=== PATIENT | male | born 1985 | race Caucasian/White ===

== ENCOUNTER 2016-10-24 20:52 | Inpatient (IN) | payer OTHER ==
[2016-10-24 21:53] VITALS: BMI 25.0
[2016-10-24] MEDS ORDERED: guaiFENesin/D-METHORPHAN HB 10 ML UNIT-DOSE CUPS PO PRN (22:32)
[2016-10-24] MEDS ORDERED: P-EPHED 60MG/TRIPROLIDI 2.5MG TABLET PO PRN (22:32)
[2016-10-24] MEDS ORDERED: MAGNESIUM HYDROX 2400MG/30ML ORAL SUSPENSION 30 ML CUP PO PRN (22:32)
[2016-10-24] MEDS ORDERED: ACETAMINOPHEN 325 MG TABLET (FP) PO PRN (22:32)
[2016-10-24] MEDS ORDERED: diphenhydrAMINE HCL 50 MG CAPSULE PO PRN (22:32)
[2016-10-24] MEDS ORDERED: LOPERAMIDE HCL 2 MG CAPSULE PO PRN (22:32)
[2016-10-24] MEDS ORDERED: MAG HYDROX/AL HYDROX/SIMETH 30 ML UNIT-DOSE CUP PO PRN (22:32)
[2016-10-24] MEDS ORDERED: MAGNESIUM CITRATE 300 ML BOTTLE PO PRN (22:32)
[2016-10-24] MEDS ORDERED: MENTHOL/PHENOL 1 EACH UD MM PRN (22:32)
[2016-10-24] MEDS ORDERED: METHADONE HCL 10 MG TABLET (FOR DETOX USE ONLY) PO ONE ×2 (22:32→23:00)
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
[2016-10-24] MEDS: CYCLOBENZAPRINE HCL 10 MG TABLET (FP) PO PRN (23:31)
[2016-10-24] MEDS: diazePAM 5 MG TABLET PO PRN (23:31)
[2016-10-25 00:55] LABS: URINE APPEARANCE CLOUDY; URINE BILIRUBIN NEGATIVE (NEGATIVE); URINE BLOOD NEGATIVE (NEGATIVE); URINE COLOR YELLOW; URINE GLUCOSE (UA) NEGATIVE (NEGATIVE); URINE KETONE NEGATIVE (NEGATIVE); URINE NITRITE NEGATIVE (NEGATIVE); URINE PROTEIN NEGATIVE (NEGATIVE); URINE UROBILINOGEN NEGATIVE E.U./dl (0.2-1.0)
[2016-10-25 01:04] LABS: URINE LEUK ESTERASE TRACE (NEGATIVE)
[2016-10-25 01:06] LABS: URINE BACTERIA FEW /hpf (NONE SEEN); URINE MUCUS RARE; URINE RBC <1 /hpf (0-3); URINE WBC 7 /hpf (3-5)
[2016-10-25] MEDS: diazePAM 5 MG TABLET PO PRN ×5 (04:46→22:42)
[2016-10-25] MEDS ORDERED: METHADONE HCL 10 MG TABLET (FOR DETOX USE ONLY) PO ONE (10:00)
[2016-10-25] MEDS: PRENATAL VITAMINS W/ FOLIC ACID TABLET (FP) PO SCH (10:03)
[2016-10-25] MEDS: RANITIDINE HCL 150 MG TABLET (FP) PO SCH ×2 (10:03→22:42)
[2016-10-25] MEDS: NICOTINE 21 MG/24 HOURS TOPICAL PATCH TD SCH (10:04)
[2016-10-25 10:08] LABS: MCH 27.2 pg (25.7-33.7); MCHC 33.8 g/dl (32.0-35.9); MEAN CELL VOLUME 80.4 fl (80-96); MEAN PLT VOLUME 7.9 fl (7.5-11.1); PLATELET COUNT 240 K/MM3 (134-434); RDW 15.5 % (11.9-15.9)
[2016-10-25 10:18] LABS: SGOT/AST 12 U/L (15-37)
[2016-10-25 10:35] LABS: ALBUMIN 3.4 g/dl (3.4-5.0); ALK PHOS 70 U/L (45-117); ANION GAP 7 (8-16); BILIRUBIN,TOTAL 0.3 mg/dL (0.2-1.0); CALCIUM 8.7 mg/dL (8.5-10.1); CO2 29 mmol/L (21-32); CREATININE 1.1 mg/dL (0.7-1.3); GLUCOSE,RANDOM 98 mg/dL (74-106); SGPT/ALT 21 U/L (12-78); TOT PROT 6.7 g/dl (6.4-8.2)
[2016-10-25 11:54] LABS: HIV 1 & 2 AB NEGATIVE; HIV 1 AGp24 NEGATIVE
[2016-10-25] MEDS: NICOTINE POLACRILEX 2 MG GUM BUC PRN ×2 (12:47→17:44)
[2016-10-25] MEDS ORDERED: COLLOIDAL OATMEAL 1 BAR EACH TP PRN (13:00)
--- NOTE | 2016-10-25 13:04 | PN ---
BHS COWS - Scale Resting Pulse: 0= [place] 80 or Below Sweatin= Chills/Flushing Restless Observation: 1= Difficult to Sit Still Pupil Size: 1= Pupils >than Normal Bone or Joint Aches: 1= Mild Discomfort Runny Nose/ Eye Tearin= Nasal Congestion GI Upset > 30mins: 1= Stomach Cramp Tremor Observation of Outstretched Hands: 1= Tremor [place], Not Seen Yawning Observation: 0= None Anxiety or Irritability: 2=Irritable/Anxious Goose Flesh Skin: 0=Smooth Skin COWS Score: 9 BHS Progress Note (SOAP) Subjective: sweats, , interryupted sleep Objective: 10/25/16 13:03 Vital Signs Temperature 98.1 F 10/25/16 09:34 Pulse Rate 58 L 10/25/16 09:34 Respiratory Rate 18 10/25/16 09:34 Blood Pressure 120/68 10/25/16 09:34 O2 Sat by Pulse Oximetry (%) Laboratory Tests 10/24/16 10/25/16 10/25/16 23:39 07:00 07:00 WBC 6.0 RBC 4.61 Hgb 12.5 Hct 37.1 MCV 80.4 MCHC 33.8 RDW 15.5 Plt Count 240 MPV 7.9 Sodium Potassium Chloride Carbon Dioxide Anion Gap BUN Creatinine Creat Clearance w eGFR Random Glucose Calcium Total Bilirubin AST ALT Alkaline Phosphatase Total Protein Albumin Urine Color Yellow Urine Appearance Cloudy Urine pH 7.0 D Ur Specific [place] 1.025 Urine Protein Negative Urine Glucose (UA) Negative Urine Ketones Negative Urine Blood Negative Urine Nitrite Negative Urine Bilirubin Negative Urine Urobilinogen Negative Ur Leukocyte Esterase Trace H Urine RBC <1 Urine WBC 7 Ur Epithelial Cells Rare Urine Bacteria Few Urine Mucus Rare RPR Titer HIV 1&2 Antibody Screen Negative HIV P24 Antigen Negative 10/25/16 10/25/16 07:00 07:00 WBC RBC Hgb Hct MCV MCHC RDW Plt Count MPV Sodium 140 Potassium 4.2 Chloride 104 Carbon Dioxide 29 Anion Gap 7 L BUN 15 D Creatinine 1.1 Creat Clearance w eGFR > 60 Random Glucose 98 Calcium 8.7 Total Bilirubin 0.3 AST 12 L D ALT 21 Alkaline Phosphatase 70 Total Protein 6.7 Albumin 3.4 Urine Color Urine Appearance Urine pH Ur Specific [place] Urine Protein Urine Glucose (UA) Urine Ketones Urine Blood Urine Nitrite Urine Bilirubin Urine Urobilinogen Ur Leukocyte Esterase Urine RBC Urine WBC Ur Epithelial Cells Urine Bacteria Urine Mucus RPR Titer Nonreactive HIV 1&2 Antibody Screen HIV P24 Antigen pt aox3 in nad ambulating Assessment: 10/25/16 13:03 withdrawl sx's Plan: cont. detox increase fluids aveeno soap
--- NOTE | 2016-10-25 16:15 | EKG ---
Test Reason : Blood Pressure : / mmHG Vent. Rate : 051 BPM Atrial Rate : 051 BPM P-R Int : 136 ms QRS Dur : 104 ms QT Int : 434 ms P-R-T Axes : 067 027 025 degrees QTc Int : 400 ms SINUS BRADYCARDIA OTHERWISE NORMAL ECG WHEN COMPARED WITH ECG OF 02-MAY-2012 06:15, NO SIGNIFICANT CHANGE WAS FOUND Confirmed by AYUSH CHRISTOPHER MD ([id number]) on 10/25/2016 4:14:59 PM Referred By: Confirmed By:AYUSH CHRISTOPHER MD
--- NOTE | 2016-10-25 16:50 | CONSULT ---
[facility] Psychiatric Consult - Data Date of interview: 10/25/16 Admission source: [facility] Identifying data: This is 31 yeqars old male with psychiatric hospitalization history intoxicated with: Opioids, Cocaine and Nicotine Substance Abuse History: - Smoking Cessation. Smoking history: Current every day smoker. Have you smoked in the past 12 months: Yes. Aproximately how many cigarettes per day: 20. Cigars Per Day: 0. Hx Chewing Tobacco Use: No. Initiated information on smoking cessation: Yes. 'Breaking Loose' booklet given : 10/24/16. - Substance & Tx. History. Hx Alcohol Use: No. Hx Substance Use: Yes. Substance Use Type: Cocaine, Opiates. Hx Substance Use Treatment: Yes. - Substances Abused. Cocaine. Route: Injection. Frequency: 1-2 times per week. Amount used: 1/2 gram. Age of first use: 15. Date of Last Use: . Heroin. Route: Injection. Frequency: Daily. Amount used: 5-10 bags. Age of first use: 27. Date of Last Use: 10/24/16 Medical History: LBP, GERD Psychiatric History: pATIENT REPORTS HISTORY OF DEPRESSION AND ANXIETYWITH MOST RECENT PSYCHIATRIC ADMISSION ON 2915 AT [facility] DUE TO ANXIETY AND DEPRESSION, REPORTS NO MEDICATIONS TAKING PRIOR TO ADMISSION Physical/Sexual Abuse/Trauma History: Denies Additional Comment: Observation Mental Status Exam - Mental Status Exam Alert and Oriented to: Person Cognitive Function: Fair Patient Appearance: Unkempt Mood: Sad Affect: Flat Patient Behavior: Cooperative Speech Pattern: Appropriate Voice Loudness: Mildly Loud Thought Process: Circumstantial Thought Disorder: Being Controlled Hallucinations: Denies Suicidal Ideation: Denies Homicidal Ideation: Denies Insight/Judgement: Fair Sleep: Difficulty falling asleep Appetite: Weight loss Muscle strength/Tone: Normal Gait/Station: Normal Additional Comments: Observation Psychiatric Findings - Problem List ([place] 1, 2,3) (1) Nicotine dependence Current Visit: Yes Status: Acute Qualifiers: Nicotine product type: cigarettes Substance use status: in withdrawal Qualified Code(s): F17.213 - Nicotine dependence, cigarettes, with withdrawal (2) Opioid dependence with withdrawal Current Visit: Yes Status: Acute (3) Anxiety and depression Current Visit: Yes Status: Suspected (4) Cocaine dependence, uncomplicated Current Visit: No Status: Acute (5) Substance induced mood disorder Current Visit: No Status: Acute - Initial Treatment Plan Initial Treatment Plan: Observation
[2016-10-25] MEDS: CYCLOBENZAPRINE HCL 10 MG TABLET (FP) PO PRN (17:44)
[2016-10-25] MEDS: THIAMINE HCL 100 MG TABLET (FP) PO SCH (22:42)
[2016-10-26] MEDS: diazePAM 5 MG TABLET PO PRN ×4 (03:55→22:23)
[2016-10-26] MEDS ORDERED: METHADONE HCL 5 MG TABLET (FOR DETOX USE ONLY) PO ONE (10:00)
[2016-10-26] MEDS: NICOTINE 21 MG/24 HOURS TOPICAL PATCH TD SCH (10:35)
[2016-10-26] MEDS: RANITIDINE HCL 150 MG TABLET (FP) PO SCH ×2 (10:35→22:23)
[2016-10-26] MEDS: PRENATAL VITAMINS W/ FOLIC ACID TABLET (FP) PO SCH (10:35)
[2016-10-26] MEDS: CYCLOBENZAPRINE HCL 10 MG TABLET (FP) PO PRN (10:35)
[2016-10-26] MEDS: NICOTINE POLACRILEX 2 MG GUM BUC PRN ×2 (10:39→14:41)
--- NOTE | 2016-10-26 10:57 | PN ---
BHS COWS - Scale Resting Pulse: 0= [place] 80 or Below Sweatin= Chills/Flushing Restless Observation: 3= Extraneous Movement Pupil Size: 1= Pupils >than Normal Bone or Joint Aches: 1= Mild Discomfort Runny Nose/ Eye Tearin= Nasal Congestion GI Upset > 30mins: 1= Stomach Cramp Tremor Observation of Outstretched Hands: 2= Slight Tremor Visible Yawning Observation: 0= None Anxiety or Irritability: 2=Irritable/Anxious Goose Flesh Skin: 0=Smooth Skin COWS Score: 12 S Progress Note (SOAP) Objective: 10/26/16 10:56 Vital Signs - 24 hr 10/25/16 10/25/16 10/25/16 13:57 18:24 21:58 Temperature 97.5 F L 97.7 F 97.9 F Pulse Rate 52 L 66 56 L Respiratory 18 16 16 Rate Blood Pressure 128/57 124/65 123/76 10/26/16 10/26/16 10/26/16 00:30 06:00 10:21 Temperature 97.5 F L 98 F Pulse Rate 72 57 L Respiratory 18 18 18 Rate Blood Pressure 107/59 133/73 Vital Signs - 24 hr 10/25/16 10/25/16 10/25/16 13:57 18:24 21:58 Temperature 97.5 F L 97.7 F 97.9 F Pulse Rate 52 L 66 56 L Respiratory 18 16 16 Rate Blood Pressure 128/57 124/65 123/76 10/26/16 10/26/16 10/26/16 00:30 06:00 10:21 Temperature 97.5 F L 98 F Pulse Rate 72 57 L Respiratory 18 18 18 Rate Blood Pressure 107/59 133/73 Laboratory Tests 10/24/16 10/25/16 10/25/16 23:39 07:00 07:00 WBC 6.0 RBC 4.61 Hgb 12.5 Hct 37.1 MCV 80.4 MCHC 33.8 RDW 15.5 Plt Count 240 MPV 7.9 Sodium Potassium Chloride Carbon Dioxide Anion Gap BUN Creatinine Creat Clearance w eGFR Random Glucose Calcium Total Bilirubin AST ALT Alkaline Phosphatase Total Protein Albumin Urine Color Yellow Urine Appearance Cloudy Urine pH 7.0 D Ur Specific [place] 1.025 Urine Protein Negative Urine Glucose (UA) Negative Urine Ketones Negative Urine Blood Negative Urine Nitrite Negative Urine Bilirubin Negative Urine Urobilinogen Negative Ur Leukocyte Esterase Trace H Urine RBC <1 Urine WBC 7 Ur Epithelial Cells Rare Urine Bacteria Few Urine Mucus Rare RPR Titer Hepatitis C Antibody HIV 1&2 Antibody Screen Negative HIV P24 Antigen Negative 10/25/16 10/25/16 10/25/16 07:00 07:00 07:00 WBC RBC Hgb Hct MCV MCHC RDW Plt Count MPV Sodium 140 Potassium 4.2 Chloride 104 Carbon Dioxide 29 Anion Gap 7 L BUN 15 D Creatinine 1.1 Creat Clearance w eGFR > 60 Random Glucose 98 Calcium 8.7 Total Bilirubin 0.3 AST 12 L D ALT 21 Alkaline Phosphatase 70 Total Protein 6.7 Albumin 3.4 Urine Color Urine Appearance Urine pH Ur Specific [place] Urine Protein Urine Glucose (UA) Urine Ketones Urine Blood Urine Nitrite Urine Bilirubin Urine Urobilinogen Ur Leukocyte Esterase Urine RBC Urine WBC Ur Epithelial Cells Urine Bacteria Urine Mucus RPR Titer Nonreactive Hepatitis C Antibody 0.2 HIV 1&2 Antibody Screen HIV P24 Antigen Assessment: 10/26/16 10:57 ONGOING WITHDRAWAL Plan: CONTINUE DETOX PROTOCOL
[2016-10-26] MEDS: NICOTINE POLACRILEX 4 MG GUM BUC PRN ×2 (20:28→22:25)
[2016-10-26] MEDS: THIAMINE HCL 100 MG TABLET (FP) PO SCH (22:23)
[2016-10-27] MEDS: diazePAM 5 MG TABLET PO PRN ×4 (07:41→22:15)
[2016-10-27] MEDS ORDERED: METHADONE HCL 5 MG TABLET (FOR DETOX USE ONLY) PO ONE (10:00)
[2016-10-27] MEDS: hydrOXYzine PAMOATE 50 MG CAPSULE (FP) PO PRN ×2 (10:45→15:16)
[2016-10-27] MEDS: RANITIDINE HCL 150 MG TABLET (FP) PO SCH ×2 (10:45→22:34)
[2016-10-27] MEDS: PRENATAL VITAMINS W/ FOLIC ACID TABLET (FP) PO SCH (10:45)
[2016-10-27] MEDS: NICOTINE 21 MG/24 HOURS TOPICAL PATCH TD SCH (10:45)
[2016-10-27] MEDS: CYCLOBENZAPRINE HCL 10 MG TABLET (FP) PO PRN ×2 (10:45→22:36)
[2016-10-27] MEDS: NICOTINE POLACRILEX 4 MG GUM BUC PRN ×3 (10:48→22:37)
--- NOTE | 2016-10-27 11:02 | PN ---
BHS Progress Note (SOAP) Subjective: ALERT,IRRITABLE,ANXIOUS,INTERRUPTED SLEEP,TREMOR,PAIN IN THE BODY AND BACK Objective: 10/27/16 11:01 Vital Signs Temperature 97.5 F L 10/27/16 09:52 Pulse Rate 63 10/27/16 09:52 Respiratory Rate 20 10/27/16 09:52 Blood Pressure 120/63 10/27/16 09:52 O2 Sat by Pulse Oximetry (%) Assessment: 10/27/16 11:01 WITHDRAWAL SYMPTOM Plan: CONTINUE DETOX
[2016-10-27] MEDS: THIAMINE HCL 100 MG TABLET (FP) PO SCH (22:34)
[2016-10-28] MEDS ORDERED: METHADONE HCL 10 MG TABLET (FOR DETOX USE ONLY) PO ONE (10:00)
[2016-10-28] MEDS: RANITIDINE HCL 150 MG TABLET (FP) PO SCH ×2 (10:45→22:27)
[2016-10-28] MEDS: CYCLOBENZAPRINE HCL 10 MG TABLET (FP) PO PRN (10:45)
[2016-10-28] MEDS: PRENATAL VITAMINS W/ FOLIC ACID TABLET (FP) PO SCH (10:45)
[2016-10-28] MEDS: NICOTINE 21 MG/24 HOURS TOPICAL PATCH TD SCH (10:45)
[2016-10-28] MEDS: hydrOXYzine PAMOATE 50 MG CAPSULE (FP) PO PRN ×2 (10:45→19:53)
[2016-10-28] MEDS: NICOTINE POLACRILEX 4 MG GUM BUC PRN ×4 (10:49→22:28)
--- NOTE | 2016-10-28 11:32 | PN ---
S Progress Note (SOAP) Subjective: alert,irritable,interrupted sleep Objective: 10/28/16 11:31 Vital Signs Temperature 96.1 F L 10/28/16 09:29 Pulse Rate 74 10/28/16 09:29 Respiratory Rate 18 10/28/16 09:29 Blood Pressure 121/72 10/28/16 09:29 O2 Sat by Pulse Oximetry (%) Assessment: 10/28/16 11:31 withdrawal symptom Plan: continue detox,discharge in am
[2016-10-28] MEDS: THIAMINE HCL 100 MG TABLET (FP) PO SCH (22:28)
[2016-10-29] MEDS: hydrOXYzine PAMOATE 50 MG CAPSULE (FP) PO PRN (01:09)
[2016-10-29] MEDS ORDERED: METHADONE HCL 5 MG TABLET (FOR DETOX USE ONLY) PO ONE (06:00)
[2016-10-29] MEDS: NICOTINE POLACRILEX 4 MG GUM BUC PRN (06:53)
--- NOTE | 2016-10-29 08:02 | DS ---
[facility] Detox Discharge Summary Admission Date: 10/24/16 Discharge Date: 10/29/16 - History Present History: Cocaine Dependence, Opioid Dependence Additional Comments: FOLLOW UP WITH AFTER [facility] PROGRAM ARRANGEMENT AND PMD FOR MEDICAL PROBLEM Pertinent Past History: GERD CHRONIC LOW BACK PAIN WITH SCIATICA ANXIETY AND DEPRESSION - Physical Exam Results Vital Signs: Vital Signs Temperature 98 F 10/29/16 06:35 Pulse Rate 67 10/29/16 06:35 Respiratory Rate 18 10/29/16 06:35 Blood Pressure 107/84 10/29/16 06:35 O2 Sat by Pulse Oximetry (%) Pertinent Admission Physical Exam Findings: WITHDRAWAL SYMPTOM - Treatment Hospital Course: Detox Protocol Followed, Detoxed Safely, Responded well, Discharged Condition Good Patient has Accepted a Rehab Referral to: DECLINED - Medication Discharge Medications: Ambulatory Orders NK [No Known Home Medication] 02/22/16 - Diagnosis (1) GERD (gastroesophageal reflux disease) Current Visit: Yes Status: Acute Qualifiers: Esophagitis presence: without esophagitis Qualified Code(s): K21.9 - Gastro-esophageal reflux disease without esophagitis (2) Nicotine dependence Current Visit: Yes Status: Acute Qualifiers: Nicotine product type: cigarettes Substance use status: in withdrawal Qualified Code(s): F17.213 - Nicotine dependence, cigarettes, with withdrawal (3) Opioid dependence with withdrawal Current Visit: Yes Status: Acute (4) Anxiety and depression Current Visit: Yes Status: Suspected (5) Cocaine dependence, uncomplicated Current Visit: No Status: Acute (6) Low back pain Current Visit: No Status: Chronic - AMA Did Patient Leave Against Medical Advice: No
[2016-10-29 11:21] VITALS: BP 114/67; PULSE 76; TEMP 98.1
== END 2016-10-29 10:22 | disposition home or self-care (01) | DRG 773 ==
LOC: YASAS 20:52 → Y6N 22:25
PROVIDERS: ADMIT Internal Medicine Addiction Medicine; ATTEND Internal Medicine Addiction Medicine
PROC: HZ2ZZZZ Detoxification Services for Substance Abuse Treatment (ICD-10-PCS; principal; 2016-10-24)
DX: F11.23 Opioid dependence with withdrawal (principal); F14.20 Cocaine dependence, uncomplicated; F17.213 Nicotine dependence, cigarettes, with withdrawal; F41.8 Other specified anxiety disorders; F19.24 Other psychoactive substance dependence with psychoactive substance-induced mood disorder; K21.9 Gastro-esophageal reflux disease without esophagitis; M54.5 Low back pain; G89.29 Other chronic pain; E78.00 Pure hypercholesterolemia, unspecified
CPT/HCPCS: 36415; 80053; 81003; 81015; 85027; 86593; 87389; 93005; 93010

== ENCOUNTER 2017-05-04 19:00 | Inpatient (IN) | payer OTHER ==
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
[2017-05-04 20:41] VITALS: BMI 24.1
[2017-05-04] MEDS ORDERED: P-EPHED 60MG/TRIPROLIDI 2.5MG TABLET PO PRN (20:57)
[2017-05-04] MEDS ORDERED: MENTHOL/PHENOL 1 EACH UD MM PRN (20:57)
[2017-05-04] MEDS ORDERED: LOPERAMIDE HCL 2 MG CAPSULE PO PRN (20:57)
[2017-05-04] MEDS ORDERED: MAGNESIUM CITRATE 300 ML BOTTLE PO PRN (20:57)
[2017-05-04] MEDS ORDERED: MAG HYDROX/AL HYDROX/SIMETH 30 ML UNIT-DOSE CUP PO PRN (20:57)
[2017-05-04] MEDS ORDERED: METHADONE HCL 10 MG TABLET (FOR DETOX USE ONLY) PO ONE ×2 (20:57→23:00)
[2017-05-04] MEDS ORDERED: hydrOXYzine PAMOATE 25 MG CAPSULE (FP) PO PRN (20:57)
[2017-05-04] MEDS ORDERED: MAGNESIUM HYDROX 2400MG/30ML ORAL SUSPENSION 30 ML CUP PO PRN (20:57)
[2017-05-04] MEDS ORDERED: guaiFENesin/D-METHORPHAN HB 10 ML UNIT-DOSE CUPS PO PRN (20:57)
[2017-05-04] MEDS ORDERED: ACETAMINOPHEN 325 MG TABLET (FP) PO PRN (20:57)
[2017-05-04] MEDS ORDERED: IBUPROFEN 400 MG TABLET (FP) PO PRN (20:57)
[2017-05-04] MEDS ORDERED: CYCLOBENZAPRINE HCL 10 MG TABLET (FP) PO PRN (21:00)
[2017-05-04] MEDS: cloNIDine HCL 0.1 MG TABLET PO SCH (22:20)
[2017-05-04] MEDS: diazePAM 5 MG TABLET PO PRN (22:21)
[2017-05-04] MEDS: NICOTINE 21 MG/24 HOURS TOPICAL PATCH TD SCH (22:21)
[2017-05-04] MEDS: THIAMINE HCL 100 MG TABLET (FP) PO SCH (22:21)
[2017-05-04] MEDS: SILVER SULFADIAZINE 1% TOP CREAM 50 GM JAR TP SCH (23:05)
[2017-05-05] MEDS: diazePAM 5 MG TABLET PO PRN ×4 (05:40→22:10)
[2017-05-05] MEDS: NICOTINE POLACRILEX 2 MG GUM BC PRN ×3 (09:07→21:08)
[2017-05-05 09:58] LABS: MCH 26.5 pg (25.7-33.7); MCHC 33.3 g/dl (32.0-35.9); MEAN CELL VOLUME 79.6 fl (80-96); MEAN PLT VOLUME 8.1 fl (7.5-11.1); PLATELET COUNT 244 K/MM3 (134-434)
[2017-05-05] MEDS ORDERED: METHADONE HCL 10 MG TABLET (FOR DETOX USE ONLY) PO ONE (10:00)
[2017-05-05 10:11] LABS: ALBUMIN 3.5 g/dl (3.4-5.0); ANION GAP 5 (8-16); BILIRUBIN,TOTAL 0.3 mg/dL (0.2-1.0); CO2 29 mmol/L (21-32); GLUCOSE,RANDOM 88 mg/dL (74-106); SGOT/AST 10 U/L (15-37); SGPT/ALT 18 U/L (12-78)
[2017-05-05 10:13] LABS: ALK PHOS 72 U/L (45-117); CALCIUM 9.6 mg/dL (8.5-10.1); CREATININE 0.8 mg/dL (0.7-1.3)
[2017-05-05] MEDS: NICOTINE 21 MG/24 HOURS TOPICAL PATCH TD SCH (10:15)
[2017-05-05] MEDS: PRENATAL VITAMINS W/ FOLIC ACID TABLET (FP) PO SCH (10:16)
[2017-05-05] MEDS: cloNIDine HCL 0.1 MG TABLET PO SCH ×2 (10:16→22:42)
[2017-05-05] MEDS: SILVER SULFADIAZINE 1% TOP CREAM 50 GM JAR TP SCH ×2 (10:57→22:42)
[2017-05-05 11:08] LABS: HIV 1 & 2 AB NEGATIVE; HIV 1 AGp24 NEGATIVE
[2017-05-05 12:39] LABS: URINE APPEARANCE CLEAR; URINE BILIRUBIN NEGATIVE (NEGATIVE); URINE BLOOD NEGATIVE (NEGATIVE); URINE COLOR YELLOW; URINE GLUCOSE (UA) NEGATIVE (NEGATIVE); URINE KETONE NEGATIVE (NEGATIVE); URINE LEUK ESTERASE NEGATIVE (NEGATIVE); URINE NITRITE NEGATIVE (NEGATIVE); URINE PROTEIN NEGATIVE (NEGATIVE); URINE UROBILINOGEN NEGATIVE mg/dL (0.2-1.0)
--- NOTE | 2017-05-05 16:07 | PN ---
S COWS - Scale Resting Pulse: 0= [place] 80 or Below Sweatin= Chills/Flushing Restless Observation: 3= Extraneous Movement Pupil Size: 1= Pupils >than Normal Bone or Joint Aches: 2= Severe Diffuse Aches Runny Nose/ Eye Tearin= Runny Nose/Eyes GI Upset > 30mins: 2= Nausea/Diarrhea Tremor Observation of Outstretched Hands: 2= Slight Tremor Visible Yawning Observation: 1= 1-2x During Session Anxiety or Irritability: 2=Irritable/Anxious Goose Flesh Skin: 0=Smooth Skin COWS Score: 16 S Progress Note (SOAP) Subjective: Chills, sweating, body ache, interrupted sleep, nausea Objective: 05/05/17 16:06 Last Vital Signs Temp Pulse Resp BP Pulse Ox 97.2 F L 48 L 18 102/52 05/05/17 13:04 05/05/17 13:04 05/05/17 13:04 05/05/17 13:04 Bradycardia noted Laboratory Tests 05/05/17 05/05/17 05/05/17 07:50 07:50 07:50 WBC 5.0 RBC 5.12 Hgb 13.6 Hct 40.7 MCV 79.6 L MCH 26.5 MCHC 33.3 RDW 15.0 Plt Count 244 MPV 8.1 Sodium 137 Potassium 3.8 Chloride 103 Carbon Dioxide 29 Anion Gap 5 L BUN 12 Creatinine 0.8 D Creat Clearance w eGFR > 60 Random Glucose 88 Calcium 9.6 Total Bilirubin 0.3 AST 10 L ALT 18 Alkaline Phosphatase 72 Total Protein 7.0 Albumin 3.5 Urine Color Urine Appearance Urine pH Urine Protein Urine Glucose (UA) Urine Ketones Urine Blood Urine Nitrite Urine Bilirubin Urine Urobilinogen Ur Leukocyte Esterase RPR Titer HIV 1&2 Antibody Screen Negative HIV P24 Antigen Negative 05/05/17 05/05/17 07:50 12:00 WBC RBC Hgb Hct MCV MCH MCHC RDW Plt Count MPV Sodium Potassium Chloride Carbon Dioxide Anion Gap BUN Creatinine Creat Clearance w eGFR Random Glucose Calcium Total Bilirubin AST ALT Alkaline Phosphatase Total Protein Albumin Urine Color Yellow Urine Appearance Clear Urine pH 5.0 D Urine Protein Negative Urine Glucose (UA) Negative Urine Ketones Negative Urine Blood Negative Urine Nitrite Negative Urine Bilirubin Negative Urine Urobilinogen Negative Ur Leukocyte Esterase Negative RPR Titer Nonreactive HIV 1&2 Antibody Screen HIV P24 Antigen Labs noted Assessment: 05/05/17 16:06 Withdrawal symptoms Noted with bradycardia Plan: Continue detox Bradycardia: asymptomatic, encouraged to drink more water, continue to monitor
--- NOTE | 2017-05-05 22:04 | EKG ---
Test Reason : Blood Pressure : / mmHG Vent. Rate : 053 BPM Atrial Rate : 053 BPM P-R Int : 130 ms QRS Dur : 110 ms QT Int : 472 ms P-R-T Axes : 046 048 034 degrees QTc Int : 442 ms SINUS BRADYCARDIA NON-SPECIFIC INTRA-VENTRICULAR CONDUCTION DELAY WHEN COMPARED WITH ECG OF 24-OCT-2016 23:42, NO SIGNIFICANT CHANGE WAS FOUND Confirmed by CLAUDIO SWARTZ MD ([id number]) on 05/05/2017 10:04:28 PM Referred By: Confirmed By:CLAUDIO SWARTZ MD
[2017-05-05] MEDS: THIAMINE HCL 100 MG TABLET (FP) PO SCH (22:10)
[2017-05-06] MEDS: diazePAM 5 MG TABLET PO PRN ×5 (05:14→23:36)
[2017-05-06] MEDS: NICOTINE POLACRILEX 2 MG GUM BC PRN ×4 (09:38→22:08)
[2017-05-06] MEDS ORDERED: METHADONE HCL 5 MG TABLET (FOR DETOX USE ONLY) PO ONE (10:00)
[2017-05-06] MEDS: NICOTINE 21 MG/24 HOURS TOPICAL PATCH TD SCH (10:08)
[2017-05-06] MEDS: PRENATAL VITAMINS W/ FOLIC ACID TABLET (FP) PO SCH (10:08)
[2017-05-06] MEDS: cloNIDine HCL 0.1 MG TABLET PO SCH ×2 (10:08→22:06)
[2017-05-06] MEDS: SILVER SULFADIAZINE 1% TOP CREAM 50 GM JAR TP SCH ×2 (10:09→22:07)
--- NOTE | 2017-05-06 11:09 | CONSULT ---
[facility] Psychiatric Consult - Data Date of interview: 05/06/17 Admission source: [facility] Identifying data: Another admission to [facility] for this 32 y/o male seeking detox treatment on for heroin and cocaine dependence.Patient is ,a father of two (biological),homeless,unemployed and supported on odd jobs. Substance Abuse History: Discussed with patient in this interview.Mr Vasquez confirms this report. Smoking Cessation. Smoking history: Current every day smoker. Have you smoked in the past 12 months: Yes. Aproximately how many cigarettes per day: 20. Cigars Per Day: 0. Hx Chewing Tobacco Use: No. Initiated information on smoking cessation: Yes. 'Breaking Loose' booklet given : 05/04/17. - Substance & Tx. History. Hx Alcohol Use: No. Hx Substance Use: Yes. Substance Use Type: Cocaine, Heroin. Hx Substance Use Treatment: Yes ( [place] 12/24). - Substances Abused. Heroin. Route: Injection. Frequency: Daily. Amount used: 10 bags. Age of first use: 24. Date of Last Use: 05/03/17. Cocaine. Route: Injection. Frequency: 3-6 times per week. Amount used: 20$. Age of first use: 15. Date of Last Use: 05/03/17 Medical History: GERD and hypercholesterolemia. Psychiatric History: Patient denies. Physical/Sexual Abuse/Trauma History: Patient reports that he lost his fiancee to suicide less than a month ago.Traumatized but seemingly coping well. Additional Comment: Urine Drug Screen Results: DUARTE-Cocaine, OPI-Opiates, BZO- Benzodiazepines.Noted. Mental Status Exam - Mental Status Exam Alert and Oriented to: Time, Place, Person Cognitive Function: Good Patient Appearance: Well Groomed Mood: Anxious Affect: Mood Congruent Patient Behavior: Appropriate, Cooperative Speech Pattern: Clear, Appropriate Voice Loudness: Normal Thought Process: Intact, Goal Oriented Thought Disorder: Not Present Hallucinations: Denies Suicidal Ideation: Denies Homicidal Ideation: Denies Insight/Judgement: Poor Sleep: Well Appetite: Good Muscle strength/Tone: Normal Gait/Station: Normal Psychiatric Findings - Problem List ([place] 1, 2,3) (1) Opioid dependence with withdrawal Current Visit: Yes Status: Acute (2) Cocaine dependence, uncomplicated Current Visit: Yes Status: Acute (3) Nicotine dependence Current Visit: Yes Status: Acute Qualifiers: Nicotine product type: cigarettes Substance use status: in withdrawal Qualified Code(s): F17.213 - Nicotine dependence, cigarettes, with withdrawal (4) Substance induced mood disorder Current Visit: Yes Status: Acute (5) Chronic low back pain without sciatica Current Visit: Yes Status: Acute Qualifiers: Back pain laterality: bilateral Qualified Code(s): M54.5 - Low back pain; G89.29 - Other chronic pain Comment: flexeril (6) GERD (gastroesophageal reflux disease) Current Visit: Yes Status: Chronic Qualifiers: Esophagitis presence: without esophagitis Qualified Code(s): K21.9 - Gastro-esophageal reflux disease without esophagitis - Initial Treatment Plan Initial Treatment Plan: Psychoeducation.Detoxification.Observation.
--- NOTE | 2017-05-06 12:27 | PN ---
[facility] COWS - Scale Resting Pulse: 0= [place] 80 or Below Sweatin= Chills/Flushing Restless Observation: 1= Difficult to Sit Still Pupil Size: 0= Normal to Room Light Bone or Joint Aches: 2= Severe Diffuse Aches Runny Nose/ Eye Tearin= Nasal Congestion GI Upset > 30mins: 1= Stomach Cramp Tremor Observation of Outstretched Hands: 1= Tremor [place], Not Seen Yawning Observation: 1= 1-2x During Session Anxiety or Irritability: 2=Irritable/Anxious Goose Flesh Skin: 3=Piloerection COWS Score: 13 BHS Progress Note (SOAP) Subjective: Interrupted Sleep, Body Aches, Constipation, Sweating. Objective: PT. A & O X 3, OBSERVED AMBULATING ON UNIT. NO ACUTE DISTRESS. 05/06/17 12:25 Vital Signs Temperature 98.9 F 05/06/17 09:04 Pulse Rate 49 L 05/06/17 09:04 Respiratory Rate 18 05/06/17 09:04 Blood Pressure 101/62 05/06/17 09:04 O2 Sat by Pulse Oximetry (%) Laboratory Tests 05/05/17 05/05/17 05/05/17 07:50 07:50 07:50 WBC 5.0 RBC 5.12 Hgb 13.6 Hct 40.7 MCV 79.6 L MCH 26.5 MCHC 33.3 RDW 15.0 Plt Count 244 MPV 8.1 Sodium 137 Potassium 3.8 Chloride 103 Carbon Dioxide 29 Anion Gap 5 L BUN 12 Creatinine 0.8 D Creat Clearance w eGFR > 60 Random Glucose 88 Calcium 9.6 Total Bilirubin 0.3 AST 10 L ALT 18 Alkaline Phosphatase 72 Total Protein 7.0 Albumin 3.5 Urine Color Urine Appearance Urine pH Ur Specific [place] Urine Protein Urine Glucose (UA) Urine Ketones Urine Blood Urine Nitrite Urine Bilirubin Urine Urobilinogen Ur Leukocyte Esterase RPR Titer HIV 1&2 Antibody Screen Negative HIV P24 Antigen Negative 05/05/17 05/05/17 07:50 12:00 WBC RBC Hgb Hct MCV MCH MCHC RDW Plt Count MPV Sodium Potassium Chloride Carbon Dioxide Anion Gap BUN Creatinine Creat Clearance w eGFR Random Glucose Calcium Total Bilirubin AST ALT Alkaline Phosphatase Total Protein Albumin Urine Color Yellow Urine Appearance Clear Urine pH 5.0 D Ur Specific [place] >= 1.030 H Urine Protein Negative Urine Glucose (UA) Negative Urine Ketones Negative Urine Blood Negative Urine Nitrite Negative Urine Bilirubin Negative Urine Urobilinogen Negative Ur Leukocyte Esterase Negative RPR Titer Nonreactive HIV 1&2 Antibody Screen HIV P24 Antigen LABS NOTED. Assessment: 05/06/17 12:26 WITHDRAWAL SYMPTOMS. Plan: CONTINUE DETOX.
[2017-05-06] MEDS: THIAMINE HCL 100 MG TABLET (FP) PO SCH (22:06)
[2017-05-06] MEDS: diphenhydrAMINE HCL 50 MG CAPSULE PO PRN (22:07)
[2017-05-07] MEDS: diazePAM 5 MG TABLET PO PRN ×4 (05:41→19:30)
[2017-05-07] MEDS: NICOTINE POLACRILEX 2 MG GUM BC PRN ×4 (09:07→19:34)
[2017-05-07] MEDS ORDERED: METHADONE HCL 5 MG TABLET (FOR DETOX USE ONLY) PO ONE (10:00)
[2017-05-07] MEDS: PRENATAL VITAMINS W/ FOLIC ACID TABLET (FP) PO SCH (10:10)
[2017-05-07] MEDS: NICOTINE 21 MG/24 HOURS TOPICAL PATCH TD SCH (10:11)
[2017-05-07] MEDS: SILVER SULFADIAZINE 1% TOP CREAM 50 GM JAR TP SCH ×2 (10:11→23:02)
[2017-05-07] MEDS: cloNIDine HCL 0.1 MG TABLET PO SCH ×2 (10:12→22:16)
--- NOTE | 2017-05-07 10:36 | PN ---
B[facility] Progress Note (SOAP) Subjective: nausea, sweats, interrupted sleep, anxiety, tremors Objective: 05/07/17 10:35 Vital Signs - 24 hr 05/06/17 05/06/17 05/06/17 13:10 17:53 22:17 Temperature 96.6 F L 97.5 F L 98.5 F Pulse Rate 43 L 60 53 L Respiratory 20 18 16 Rate Blood Pressure 121/58 100/60 122/62 05/07/17 05/07/17 05/07/17 00:29 03:23 06:31 Temperature 97.8 F Pulse Rate 53 L Respiratory 18 18 18 Rate Blood Pressure 101/58 05/07/17 09:21 Temperature 97 F L Pulse Rate 45 L Respiratory 20 Rate Blood Pressure 105/49 Laboratory Tests 05/05/17 05/05/17 05/05/17 07:50 07:50 07:50 WBC 5.0 RBC 5.12 Hgb 13.6 Hct 40.7 MCV 79.6 L MCH 26.5 MCHC 33.3 RDW 15.0 Plt Count 244 MPV 8.1 Sodium 137 Potassium 3.8 Chloride 103 Carbon Dioxide 29 Anion Gap 5 L BUN 12 Creatinine 0.8 D Creat Clearance w eGFR > 60 Random Glucose 88 Calcium 9.6 Total Bilirubin 0.3 AST 10 L ALT 18 Alkaline Phosphatase 72 Total Protein 7.0 Albumin 3.5 Urine Color Urine Appearance Urine pH Ur Specific [place] Urine Protein Urine Glucose (UA) Urine Ketones Urine Blood Urine Nitrite Urine Bilirubin Urine Urobilinogen Ur Leukocyte Esterase RPR Titer HIV 1&2 Antibody Screen Negative HIV P24 Antigen Negative 05/05/17 05/05/17 07:50 12:00 WBC RBC Hgb Hct MCV MCH MCHC RDW Plt Count MPV Sodium Potassium Chloride Carbon Dioxide Anion Gap BUN Creatinine Creat Clearance w eGFR Random Glucose Calcium Total Bilirubin AST ALT Alkaline Phosphatase Total Protein Albumin Urine Color Yellow Urine Appearance Clear Urine pH 5.0 D Ur Specific [place] >= 1.030 H Urine Protein Negative Urine Glucose (UA) Negative Urine Ketones Negative Urine Blood Negative Urine Nitrite Negative Urine Bilirubin Negative Urine Urobilinogen Negative Ur Leukocyte Esterase Negative RPR Titer Nonreactive HIV 1&2 Antibody Screen HIV P24 Antigen Assessment: 05/07/17 10:36 withdrawal sx Plan: cont detox, fluids, encourage ambulation
[2017-05-07] MEDS: THIAMINE HCL 100 MG TABLET (FP) PO SCH (22:16)
[2017-05-07] MEDS: diphenhydrAMINE HCL 50 MG CAPSULE PO PRN (23:23)
[2017-05-08] MEDS ORDERED: METHADONE HCL 10 MG TABLET (FOR DETOX USE ONLY) PO ONE (10:00)
[2017-05-08] MEDS: SILVER SULFADIAZINE 1% TOP CREAM 50 GM JAR TP SCH (10:28)
[2017-05-08] MEDS: cloNIDine HCL 0.1 MG TABLET PO SCH (10:28)
[2017-05-08] MEDS: PRENATAL VITAMINS W/ FOLIC ACID TABLET (FP) PO SCH (10:28)
[2017-05-08] MEDS: NICOTINE 21 MG/24 HOURS TOPICAL PATCH TD SCH (10:28)
[2017-05-08 13:12] VITALS: BP 121/62; PULSE 58
[2017-05-08 13:37] VITALS: TEMP 98
[2017-05-09] MEDS ORDERED: METHADONE HCL 5 MG TABLET (FOR DETOX USE ONLY) PO ONE (06:00)
== END 2017-05-08 12:39 | disposition other institution (70) | DRG 773 ==
LOC: YASAS 19:00 → Y3N 20:27
PROVIDERS: ADMIT Internal Medicine Addiction Medicine; ATTEND Internal Medicine Addiction Medicine
PROC: HZ2ZZZZ Detoxification Services for Substance Abuse Treatment (ICD-10-PCS; principal; 2017-05-04)
DX: F11.23 Opioid dependence with withdrawal (principal); F14.20 Cocaine dependence, uncomplicated; F17.213 Nicotine dependence, cigarettes, with withdrawal; F19.24 Other psychoactive substance dependence with psychoactive substance-induced mood disorder; F41.8 Other specified anxiety disorders; M54.5 Low back pain; G89.29 Other chronic pain; G47.00 Insomnia, unspecified; K21.9 Gastro-esophageal reflux disease without esophagitis; R00.1 Bradycardia, unspecified
CPT/HCPCS: 36415; 80053; 81003; 85027; 86593; 87389; 93005; 93010

== ENCOUNTER 2017-05-08 12:57 | Inpatient (IN) | payer OTHER ==
[2017-05-08 13:20] VITALS: BMI 25.4
[2017-05-08] MEDS ORDERED: MAG HYDROX/AL HYDROX/SIMETH 30 ML UNIT-DOSE CUP PO PRN ×2 (15:08→20:58)
[2017-05-08] MEDS ORDERED: guaiFENesin/D-METHORPHAN HB 10 ML UNIT-DOSE CUPS PO PRN ×2 (15:08→20:58)
[2017-05-08] MEDS ORDERED: MAGNESIUM CITRATE 300 ML BOTTLE PO PRN ×2 (15:08→20:58)
--- NOTE | 2017-05-08 16:21 | HP ---
[facility] Rehab Assess/Revision - Admission History Admitted to Rehab from: [facility] Date of Admission to Rehab: 05/08/17 - Vital signs Vital Signs: Vital Signs Period Temp Pulse Resp BP Sys/Dow Pulse Ox Last 24 Hr 98.3 F 68 18 119/67 - Findings Detox History & Physical reviewed: Yes Concur with findings: Yes Comments/Additional Findings: TRANSFERRED FROM DETOX TO REHAB ADMISSTION PER PROTOCOL
--- NOTE | 2017-05-08 18:19 | DS ---
[facility] Detox Discharge Summary Admission Date: 05/08/17 Discharge Date: 05/08/17 - History Present History: Cocaine Dependence, Opioid Dependence Additional Comments: PATIENT REPORTS MINIMAL DETOX SYMPTOMS AND THAT THAT HE GENERALLY FEELS WELL OVERALL. PATIENT TO CONTINUE ON TO [facility] FOR FOLLOW-UP AFTERCARE. PATIENT DISCHARGED FROM DETOX UNIT TO BE TRANSFERRED TO REHAB UNIT IN STABLE MEDICAL CONDITION. Pertinent Past History: Insomnia, Low Back Pain, Depression / Anxiety, GERD. - Physical Exam Results Vital Signs: Vital Signs Temperature 98.3 F 05/08/17 13:02 Pulse Rate 68 05/08/17 13:02 Respiratory Rate 18 05/08/17 13:02 Blood Pressure 119/67 05/08/17 13:02 O2 Sat by Pulse Oximetry (%) Pertinent Admission Physical Exam Findings: WITHDRAWAL SYMPTOMS. DETOX ADMISSION LABS NOTED. - Treatment Hospital Course: Detox Protocol Followed, Detoxed Safely, Responded well, Discharged Condition Good, Rehab Referral Accepted Patient has Accepted a Rehab Referral to: [facility]. - Medication Discharge Medications: Ambulatory Orders NK [No Known Home Medication] 02/22/16 - Diagnosis (1) Chronic low back pain without sciatica Current Visit: No Status: Chronic Qualifiers: Back pain laterality: bilateral Qualified Code(s): M54.5 - Low back pain; G89.29 - Other chronic pain (2) Cocaine dependence, uncomplicated Current Visit: Yes Status: Acute (3) Insomnia Current Visit: No Status: Acute (4) Nicotine dependence Current Visit: Yes Status: Chronic Qualifiers: Nicotine product type: cigarettes Substance use status: in withdrawal Qualified Code(s): F17.213 - Nicotine dependence, cigarettes, with withdrawal (5) Opioid dependence with withdrawal Current Visit: Yes Status: Acute (6) Substance induced mood disorder Current Visit: No Status: Acute (7) GERD (gastroesophageal reflux disease) Current Visit: Yes Status: Chronic Qualifiers: Esophagitis presence: without esophagitis Qualified Code(s): K21.9 - Gastro-esophageal reflux disease without esophagitis (8) Anxiety and depression Current Visit: No Status: Acute - AMA Did Patient Leave Against Medical Advice: No
[2017-05-08] MEDS ORDERED: P-EPHED 60MG/TRIPROLIDI 2.5MG TABLET PO PRN (20:58)
[2017-05-08] MEDS ORDERED: ACETAMINOPHEN 325 MG TABLET (FP) PO PRN (20:58)
[2017-05-08] MEDS ORDERED: MAGNESIUM HYDROX 2400MG/30ML ORAL SUSPENSION 30 ML CUP PO PRN (20:58)
[2017-05-08] MEDS ORDERED: LOPERAMIDE HCL 2 MG CAPSULE PO PRN (20:58)
[2017-05-08] MEDS ORDERED: MENTHOL/PHENOL 1 EACH UD MM PRN (20:58)
[2017-05-08] MEDS ORDERED: IBUPROFEN 400 MG TABLET (FP) PO PRN (20:58)
[2017-05-08] MEDS: hydrOXYzine PAMOATE 50 MG CAPSULE (FP) PO PRN (21:10)
[2017-05-08] MEDS: THIAMINE HCL 100 MG TABLET (FP) PO SCH (22:28)
[2017-05-08] MEDS: SILVER SULFADIAZINE 1% TOP CREAM 400 GM JAR TP SCH (22:28)
[2017-05-09] MEDS: NICOTINE POLACRILEX 4 MG GUM BUC PRN ×4 (07:27→21:05)
[2017-05-09] MEDS: SILVER SULFADIAZINE 1% TOP CREAM 400 GM JAR TP SCH ×2 (10:21→21:06)
[2017-05-09] MEDS: PRENATAL VITAMINS W/ FOLIC ACID TABLET (FP) PO SCH ×2 (10:21)
[2017-05-09] MEDS: NICOTINE 21 MG/24 HOURS TOPICAL PATCH TD SCH (10:24)
--- NOTE | 2017-05-09 13:46 | HP ---
Psychiatrist Admission - Data Date of interview: 05/09/17 Admission source: 3N Identifying data: This is the first 3w inpatient rehabilitation admission for this 32 year old single male father of 2, he is domiciled, unemployed and supported by his mother. Medical History: GERD, hypercholestrolemia. smokes 20 cigaretets a day. Psychiatric History: Patient reports in 2014 he went once to the [facility] to address depression, states he was there for 24 hours for observation and discharged with script for Wellbutrin, he took medication one month and stopped "I did no see any difference", reports his filauree committed suicide 4 weeks ago, he feels depressed, having craying spells, sad and overwhelmed. Physical/Sexual Abuse/Trauma History: Patient denies Vital Signs: Vital Signs - 24 hr 05/09/17 05/09/17 05/09/17 00:30 03:30 07:05 Temperature 97.7 F Pulse Rate 52 L Respiratory 20 20 16 Rate Blood Pressure 123/62 Allergies/Adverse Reactions: Allergies Allergy/AdvReac Type Severity Reaction Status Date / Time No Known Allergies Allergy Verified 10/24/16 21:58 - Substance Abuse/Tx History Hx Alcohol Use: No Hx Substance Use: Yes Substance Use Type: Cocaine (3-5 times a week for$20, age of first use 15), Heroin (started at age of 24, daily 5-6 bags) Hx Substance Use Treatment: Yes - Admission Criteria Previous failed treatment: Yes Poor recovery environment: Yes Comorbidities: No Lacks judgement: Yes Mental Status Exam - Mental Status Exam Alert and Oriented to: Time, Place, Person Cognitive Function: Good Patient Appearance: Well Groomed Mood: Depressed, Sad, Anxious Affect: Appropriate, Mood Congruent, Normal Range Patient Behavior: Appropriate, Cooperative Speech Pattern: Clear, Appropriate Voice Loudness: Normal Thought Process: Intact Thought Disorder: Not Present Hallucinations: Denies Suicidal Ideation: Denies Homicidal Ideation: Denies Insight/Judgement: Good Sleep: Fair Appetite: Fair Muscle strength/Tone: Normal Gait/Station: Normal Psychiatric Findings - Problem List ([place] 1, 2,3) (1) Nicotine dependence Current Visit: Yes Status: Chronic Qualifiers: Nicotine product type: cigarettes Substance use status: in withdrawal Qualified Code(s): F17.213 - Nicotine dependence, cigarettes, with withdrawal (2) Opioid dependence Current Visit: Yes Status: Acute (3) Cocaine dependence Current Visit: Yes Status: Acute (4) Bereavement Current Visit: Yes Status: Acute (5) Substance induced mood disorder Current Visit: No Status: Acute - Initial Treatment Plan Initial Treatment Plan: Discussed indications and properties of Lexapro , patient agreed to start treatment, will monitor progress as needed.
[2017-05-09] MEDS ORDERED: PT OWN MED DRAWER 7, Y5N ONE (20:20)
[2017-05-09] MEDS: THIAMINE HCL 100 MG TABLET (FP) PO SCH (21:05)
[2017-05-09] MEDS: hydrOXYzine PAMOATE 50 MG CAPSULE (FP) PO PRN (21:07)
[2017-05-10] MEDS: diphenhydrAMINE HCL 50 MG CAPSULE PO PRN ×2 (00:38→22:08)
[2017-05-10] MEDS: NICOTINE POLACRILEX 4 MG GUM BUC PRN ×2 (08:36→14:01)
[2017-05-10] MEDS: ESCITALOPRAM OXALATE 10 MG TABLET (FP) PO SCH (10:02)
[2017-05-10] MEDS: PRENATAL VITAMINS W/ FOLIC ACID TABLET (FP) PO SCH ×2 (10:02→10:04)
[2017-05-10] MEDS: NICOTINE 21 MG/24 HOURS TOPICAL PATCH TD SCH (10:03)
[2017-05-10] MEDS: SILVER SULFADIAZINE 1% TOP CREAM 400 GM JAR TP SCH ×2 (10:40→21:13)
[2017-05-10] MEDS: hydrOXYzine PAMOATE 50 MG CAPSULE (FP) PO PRN (21:09)
[2017-05-10] MEDS: THIAMINE HCL 100 MG TABLET (FP) PO SCH (21:09)
[2017-05-11 06:53] VITALS: PULSE 52
[2017-05-11] MEDS: ESCITALOPRAM OXALATE 10 MG TABLET (FP) PO SCH (10:18)
[2017-05-11] MEDS: NICOTINE 21 MG/24 HOURS TOPICAL PATCH TD SCH (10:18)
[2017-05-11] MEDS: PRENATAL VITAMINS W/ FOLIC ACID TABLET (FP) PO SCH ×2 (10:18→10:21)
[2017-05-11] MEDS: SILVER SULFADIAZINE 1% TOP CREAM 400 GM JAR TP SCH ×2 (10:21→21:08)
[2017-05-11] MEDS: hydrOXYzine PAMOATE 50 MG CAPSULE (FP) PO PRN (21:06)
[2017-05-11] MEDS: NICOTINE POLACRILEX 4 MG GUM BUC PRN (21:06)
[2017-05-11] MEDS: THIAMINE HCL 100 MG TABLET (FP) PO SCH (21:06)
[2017-05-11] MEDS: diphenhydrAMINE HCL 50 MG CAPSULE PO PRN (23:22)
[2017-05-12 06:58] VITALS: BP 128/53; TEMP 98.2
[2017-05-12] MEDS: NICOTINE POLACRILEX 4 MG GUM BUC PRN ×2 (09:03→13:46)
[2017-05-12] MEDS: ESCITALOPRAM OXALATE 10 MG TABLET (FP) PO SCH (09:37)
[2017-05-12] MEDS: PRENATAL VITAMINS W/ FOLIC ACID TABLET (FP) PO SCH ×2 (09:37→10:05)
[2017-05-12] MEDS: NICOTINE 21 MG/24 HOURS TOPICAL PATCH TD SCH (09:37)
[2017-05-12] MEDS: SILVER SULFADIAZINE 1% TOP CREAM 400 GM JAR TP SCH (10:04)
== END 2017-05-12 15:50 | disposition left against medical advice (07) | DRG 770 ==
LOC: YASAS 12:57 → Y3W 12:59
PROVIDERS: ADMIT Psychiatry & Neurology Psychiatry; ATTEND Psychiatry & Neurology Psychiatry
PROC: HZ42ZZZ Group Counseling for Substance Abuse Treatment, Cognitive-Behavioral (ICD-10-PCS; principal; 2017-05-08)
DX: F11.20 Opioid dependence, uncomplicated (principal); F14.20 Cocaine dependence, uncomplicated; F17.213 Nicotine dependence, cigarettes, with withdrawal; F19.24 Other psychoactive substance dependence with psychoactive substance-induced mood disorder; Z63.4 Disappearance and death of family member